=== PATIENT | female | born 1980 | race Caucasian/White ===

== ENCOUNTER 2016-08-26 21:26 | Emergency (ER) | payer MEDICAID ==
[~2016-08-26] VITALS: Ht 167.6 cm; Wt 129.1 kg
[~2016-08-26 21:26] MED LIST: ACETAMINOPHEN W1 TA6 PO; ALPRAZOLAM; CEPHALEXIN500 M1 PO; CIPRO 500MG TA500 MG PO; FLEXERIL; FLEXERIL10 MG PO; HTN MED PO; LEVAQUIN 750MG750 MG PO; LORTAB 5/500 501 TAB PO; MACROBID100 MG PO; MEDROL 4MG DOSPA4 MG PO; NO HOME MEDICATIONS; PEN-VEE K500 MG PO; PERCOCET 325 MG1 TA2 PO; PERCOCET 5/321 UDTAB PO; PHENERGAN 25 TA25 MG PO; PHENERGAN W/CO120 ML PO; PYRIDIUM 100MG100 MG PO; PYRIDIUM200 M1 PO; TESSALON PERLE200 MG PO; TOPAMAX 100MG100 MG PO; VALIUM5 MG PO; VICODIN 5/5001 UDTAB PO; ZITHROMAX Z PA250 MG PO; ZOLOFT 100MG100 MG PO
[2016-08-26 21:29] VITALS: BP 131/79; TEMP 98.2
[2016-08-26] MEDS ORDERED: XANAX2 MG PO (21:32)
[2016-08-26] MEDS ORDERED: AMBIEN 10MG10 MG PO (21:32)
[2016-08-26] MEDS ORDERED: LEXAPRO 10MG10 MG PO (21:32)
[2016-08-26 23:45] VITALS: PULSE 78
== END 2016-08-26 23:47 | disposition home or self-care (01) ==
LOC: COL.ER 21:26
DX: G43.909 Migraine, unspecified, not intractable, without status migrainosus (principal); F17.210 Nicotine dependence, cigarettes, uncomplicated
CPT/HCPCS: J1100; J1200; J1630; J1885; J7030

== ENCOUNTER 2017-09-05 00:39 | Emergency (ER) | payer MEDICAID ==
[~2017-09-05] VITALS: Ht 167.6 cm; Wt 135.5 kg
[~2017-09-05 00:39] MED LIST changes: +AMBIEN 10MG10 MG PO; +LEXAPRO 10MG10 MG PO; +XANAX2 MG PO
[2017-09-05 00:44] VITALS: TEMP 98
[2017-09-05 01:00] LABS: COLLECTION METHOD CLEAN CATCH
[2017-09-05 01:07] LABS: PH 6 (5-8); SQUAMOUS EPITHELIAL 0-2 /hpf; URINE APPEARANCE Hazy; URINE BACTERIA Rare /hpf; URINE BILIRUBIN Negative (NEGATIVE); URINE BLOOD 3+ (NEGATIVE); URINE COLOR Yellow; URINE GLUCOSE Negative (NEGATIVE); URINE KETONE Negative (NEGATIVE); URINE LEUKOCYTE ESTERASE 3+ (NEGATIVE); URINE NITRATE Negative (NEGATIVE); URINE PROTEIN(semi-quant) Negative (NEGATIVE); URINE RBC 20-50 /hpf; URINE UROBILINOGEN Negative (NEGATIVE)
[2017-09-05 01:16] LABS: BASO % 0.3 % (0.0-2.0); EOS # 0.1 (0.0-0.7); EOS % 1.1 % (0-4.0); GRAN # 6.7 (1.4-6.5); GRAN % 70.3 % (42.2-75.2); HEMATOCRIT 39.1 % (37.0-47.0); HEMOGLOBIN 12.5 g/dl (12.5-16.0); LYMPH # 2.1 (1.2-3.4); LYMPH % 21.8 % (20.0-51.0); MEAN CELL VOLUME 82 fl (80.0-100.0); MEAN CORPUSCULAR HEMOGLOBIN 26 pg (27.0-31.0); MEAN CORPUSCULAR HGB CONC 32 g/dl (33.0-37.0); MEAN PLATELET VOLUME 11.5 fl (7.4-10.4); MONO # 0.6 (0.1-0.6); MONO % 6.2 % (1.7-9.3); PLATELET COUNT 237 K/mm3 (130-400); RED BLOOD COUNT 4.75 M/mm3 (4.10-5.30); REDCELL DISTRIBUTION WIDTH-CV 13.4 % (11.5-14.5)
[2017-09-05 01:26] LABS: ALBUMIN 3.6 gm/dL (3.5-5.0); BILIRUBIN,TOTAL 0.4 mg/dL (0.0-1.0); CALCIUM 9.2 mg/dL (8.4-10.2); CREATININE, serum 0.9 mg/dL (0.52-1.25); POTASSIUM 4.2 mmol/L (3.4-5.0); TOTAL PROTEIN 7.2 gm/dL (6.4-8.2)
[2017-09-05 01:40] LABS: C-REACTIVE PROTEIN 2.4 mg/dL (0.0-0.9)
[2017-09-05] MEDS ORDERED: CEFTIN500 MG PO (03:29)
[2017-09-05] MEDS ORDERED: PHENERGAN 25 TA25 MG PO (03:33)
[2017-09-05] MEDS ORDERED: PYRIDIUM200 M1 PO (03:41)
[2017-09-05 03:54] VITALS: BP 132/87; PULSE 88
== END 2017-09-05 03:45 | disposition home or self-care (01) ==
LOC: COL.ER 00:39
PROVIDERS: Emergency Medicine
DX: N39.0 Urinary tract infection, site not specified (principal); G43.909 Migraine, unspecified, not intractable, without status migrainosus; Z87.442 Personal history of urinary calculi; Z98.890 Other specified postprocedural states
CPT/HCPCS: J0696; J1170; J2550; J7030; Q9967

== ENCOUNTER 2018-03-29 21:47 | Emergency (ER) | payer MEDICAID ==
[~2018-03-29] VITALS: Ht 167.6 cm; Wt 134.5 kg
[~2018-03-29 21:47] MED LIST changes: +CEFTIN500 MG PO
[2018-03-29 22:09] VITALS: BP 138/69; PULSE 95; TEMP 97.2
[2018-03-29] MEDS ORDERED: PERCOCET 325 MG1 TA2 PO (22:48)
[2018-03-29] MEDS ORDERED: ULTRAM 50MG TAB50 MG PO (22:53)
[2018-03-29 23:40] LABS: BASO % 0.4 % (0.0-2.0); EOS # 0.1 (0.0-0.7); EOS % 1.3 % (0-4.0); GRAN # 5.6 (1.4-6.5); GRAN % 70.1 % (42.2-75.2); HEMATOCRIT 40.8 % (37.0-47.0); HEMOGLOBIN 13.1 g/dl (12.5-16.0); LYMPH # 1.7 (1.2-3.4); LYMPH % 20.9 % (20.0-51.0); MEAN CELL VOLUME 83 fl (80.0-100.0); MEAN CORPUSCULAR HEMOGLOBIN 27 pg (27.0-31.0); MEAN CORPUSCULAR HGB CONC 32 g/dl (33.0-37.0); MEAN PLATELET VOLUME 11.2 fl (7.4-10.4); MONO # 0.6 (0.1-0.6); PLATELET COUNT 210 K/mm3 (130-400); REDCELL DISTRIBUTION WIDTH-CV 13.9 % (11.5-14.5)
[2018-03-29 23:53] LABS: ALBUMIN 3.9 gm/dL (3.5-5.0); BILIRUBIN,TOTAL 0.2 mg/dL (0.0-1.0); C-REACTIVE PROTEIN 1.6 mg/dL (0.0-0.9); CALCIUM 9.1 mg/dL (8.4-10.2); CREATININE, serum 0.99 mg/dL (0.52-1.25); POTASSIUM 4.4 mmol/L (3.4-5.0)
[2018-03-30 00:09] LABS: COLLECTION METHOD CLEAN CATCH
[2018-03-30 00:21] LABS: AMORPHOUS CRYSTAL Present /uL; MUCOUS Present /lpf; PH 7 (5-8); SQUAMOUS EPITHELIAL 20-50 /hpf; URINE APPEARANCE Cloudy; URINE BACTERIA Rare /hpf; URINE BILIRUBIN Negative (NEGATIVE); URINE BLOOD 3+ (NEGATIVE); URINE COLOR Yellow; URINE GLUCOSE Negative (NEGATIVE); URINE KETONE Negative (NEGATIVE); URINE LEUKOCYTE ESTERASE Negative (NEGATIVE); URINE NITRATE Negative (NEGATIVE); URINE PROTEIN(semi-quant) 2+ (NEGATIVE); URINE UROBILINOGEN Negative (NEGATIVE)
== END 2018-03-30 01:39 | disposition left against medical advice (07) ==
LOC: COL.ER 21:47
PROVIDERS: Family Medicine; Physician Assistant
DX: R10.2 Pelvic and perineal pain (principal); F41.9 Anxiety disorder, unspecified; Z79.899 Other long term (current) drug therapy; Z79.891 Long term (current) use of opiate analgesic; Z87.891 Personal history of nicotine dependence
CPT/HCPCS: J1885; J2405; J7030

== ENCOUNTER 2019-11-14 16:24 | Emergency (ER) | payer MEDICAID ==
[~2019-11-14] VITALS: Ht 167.6 cm; Wt 138.6 kg
[~2019-11-14 16:24] MED LIST changes: +ULTRAM 50MG TAB50 MG PO
[2019-11-14 16:32] VITALS: TEMP 98.5
[2019-11-14 16:56] LABS: BASO % 0.3 % (0.0-2.0); EOS % 0.1 % (0-4.0); GRAN # 10.2 (1.4-6.5); GRAN % 85.8 % (42.2-75.2); HEMOGLOBIN 13.3 g/dl (12.5-16.0); LYMPH % 8.3 % (20.0-51.0); MEAN CELL VOLUME 81 fl (80.0-100.0); MEAN CORPUSCULAR HEMOGLOBIN 27 pg (27.0-31.0); MEAN CORPUSCULAR HGB CONC 33 g/dl (33.0-37.0); MEAN PLATELET VOLUME 10.8 fl (7.4-10.4); MONO # 0.6 (0.1-0.6); MONO % 5.2 % (1.7-9.3); PLATELET COUNT 247 K/mm3 (130-400); RED BLOOD COUNT 4.93 M/mm3 (4.10-5.30); REDCELL DISTRIBUTION WIDTH-CV 14.3 % (11.5-14.5)
[2019-11-14 17:30] LABS: ALBUMIN 4.3 gm/dL (3.5-5.0); BILIRUBIN,TOTAL 0.5 mg/dL (0.0-1.0); C-REACTIVE PROTEIN 0.9 mg/dL (0.0-0.9); CALCIUM 9.2 mg/dL (8.4-10.2); CREATININE, serum 0.9 (0.52-1.25); POTASSIUM 3.9 mmol/L (3.4-5.0)
[2019-11-14 17:39] LABS: TROPONIN-I 0.032 ng/mL (0.000-0.035)
[2019-11-14 17:44] LABS: PROLACTIN 14.6 ng/mL (3.0-18.6)
[2019-11-14] MEDS ORDERED: ATIVAN 0.50.5 MG/TAB PO (18:09)
[2019-11-14 19:12] VITALS: BP 117/69; PULSE 88
== END 2019-11-14 19:08 | disposition home or self-care (01) ==
LOC: COL.ER 16:24
PROVIDERS: Emergency Medicine
DX: R56.9 Unspecified convulsions (principal); R55 Syncope and collapse; F41.9 Anxiety disorder, unspecified; F17.210 Nicotine dependence, cigarettes, uncomplicated; Z90.710 Acquired absence of both cervix and uterus
CPT/HCPCS: J2060; J7030